=== PATIENT | male | born 1955 | race Hispanic/Latino ===

== ENCOUNTER 2016-11-04 19:39 | Observation (INO) | payer MEDICARE, MEDICAID ==
[2016-11-04 19:40] VITALS: BMI 34.8
[2016-11-04 20:23] LABS: BASO # 0.1 K/uL (0.0-0.2); BASO % 0.9 % (0.0-2.0); EOS # 0.3 K/uL (0.0-0.7); EOS % 4.3 % (0.0-4.0); HEMOGLOBIN 11.3 g/dL (12.0-18.0); LYMPH # 1.5 K/uL (1.0-4.3); LYMPH % 21.8 % (20.0-40.0); MEAN CORPUSCULAR HEMOGLOBIN 31.8 pg (27.0-31.0); MEAN CORPUSCULAR HGB CONC 32.8 g/dL (33.0-37.0); MEAN PLATELET VOLUME 8.1 fl (7.2-11.7); MONO # 0.8 K/uL (0.0-0.8); MONO % 11.3 % (0.0-10.0); NEUT # 4.3 K/uL (1.8-7.0); NEUT % 61.7 % (50.0-75.0); RBC 3.56 Mil/uL (4.40-5.90)
[2016-11-04 20:42] LABS: INR 1.2 (0.9-1.2); PARTIAL THROMBOPLASTIN TIME 33.6 Seconds (25.6-37.1); PROTHROMBIN TIME 12.1 Seconds (9.8-13.1)
[2016-11-04 20:45] LABS: ALB/GLOB RATIO 1.2 (1.0-2.1); ALBUMIN 3.9 g/dL (3.5-5.0); ALT/SGPT 38 U/L (21-72); AST/SGOT 24 U/L (17-59); BLOOD UREA NITROGEN 18 mg/dl (9-20); CALCIUM 9.3 mg/dL (8.4-10.2); GFR AFRICAN-AMERICAN > 60; GFR NON-AFRICAN AMERICAN > 60
--- NOTE | 2016-11-04 20:46 | ED PDOC ---
HPI: Chest Pain Time Seen by Provider: 11/04/16 19:57 Chief Complaint (Nursing): Chest Pain Chief Complaint (Provider): Chest pain History Per: Patient History/Exam Limitations: no limitations Onset/Duration Of Symptoms: Hrs ([id number].), Persistent (Mild but persistent.) Associated Symptoms: denies: Nausea, Diaphoresis, Other (No Vomiting,cough, or SOB) Additional Complaint(s): Shaun Lutz is a 61 year old male with a past medical history of HTN who presents to the ED for a chief complaint of chest pain onset [id number]. Patient reports he was cooking and developed acute left sided chest pain, with some associated jolt sensations to the left arm. States pain is mild but persistent and reports fatigue since onset. Denies any nausea, vomiting, diaphoresis, cough, or shortness of breath. Of note, patient denies any drug abuse, however the previous provider that saw the patient reports a history of cocaine abuse. PMD: None. Past Medical History Reviewed: Historical Data, Nursing Documentation, Vital Signs Vital Signs: Last Vital Signs Temp 98.2 F 11/05/16 00:00 Pulse 75 11/05/16 00:00 Resp 24 11/05/16 00:00 BP 136/68 11/05/16 00:00 Pulse Ox 100 11/05/16 00:00 - Medical History PMH: Anxiety, Bipolar Disorder, HTN, Chronic Pain - Surgical History Other surgeries: B/L Knee replacement. Multiple left foot surgeries. - Family History Family History: States: Unknown Family Hx - Social History Current smoker - smoking cessation education provided: No Ex-Smoker (has not smoked in the last 12 months): No Alcohol: Occasional Drugs: Denies (Patient denies drug abuse, but the previous provider that saw patient reports cocaine abuse.) - Immunization History Hx Tetanus Toxoid Vaccination: No Hx Influenza Vaccination: No Hx Pneumococcal Vaccination: No - Home Medications Home Medications: Ambulatory Orders Medication Instructions Recorded Pramipexole Di-HCl [Mirapex] 2 tab PO BID 10/05/16 Aspirin [Ecotrin] 81 mg PO DAILY 11/04/16 oxyCODONE [oxyCODONE Immediate 30 mg PO PRN PRN 11/04/16 Release Tab] - Allergies Allergies/Adverse Reactions: Allergies Allergy/AdvReac Type Severity Reaction Status Date / Time No Known Allergies Allergy Verified 11/04/16 21:00 Review of Systems ROS Statement: Except As Marked, All Systems Reviewed And Found Negative Constitutional: Negative for: Other (No Diaphoresis.) Cardiovascular: Positive for: Chest Pain (onset [id number].) Respiratory: Negative for: Cough, Shortness of Breath Gastrointestinal: Negative for: Nausea, Vomiting Physical Exam - Reviewed Nursing Documentation Reviewed: Yes Vital Signs Reviewed: Yes - Physical Exam Appears: Positive for: Well, Non-toxic, No Acute Distress Head Exam: Positive for: ATRAUMATIC, NORMAL INSPECTION, NORMOCEPHALIC Skin: Positive for: Normal Color, Warm, Dry Eye Exam: Positive for: Normal appearance, EOMI, PERRL ENT: Positive for: Normal ENT Inspection Neck: Positive for: Normal, Painless ROM Cardiovascular/Chest: Positive for: Regular Rate, Rhythm. Negative for: Murmur , Tachycardia Respiratory: Positive for: Normal Breath Sounds. Negative for: Wheezing, Respiratory Distress Gastrointestinal/Abdominal: Positive for: Normal Exam Back: Positive for: Normal Inspection Rectal: Positive for: Deferred Extremity: Positive for: Normal ROM Lymphatic: Positive for: Deferred Neurologic/Psych: Positive for: Alert, Oriented - Laboratory Results Result Diagrams: 11/04/16 20:18 11/04/16 20:18 - ECG O2 Sat by Pulse Oximetry: 97 (RA) Pulse Ox Interpretation: Normal Medical Decision Making Medical Decision Making: Time:1956: Initial Impression: 61 Year old male with chest pain. Initial Plan: * Labs * EKG * Chest X-Ray * Aspirin * Re-Evaluation 2042: Chest X-ray showed no acute diseases. Labs showed no clinically significant abnormalities. Patient will be admitted for chest pain observation. Case discussed with Dr. Chavira- medicine education liaison. Scribe Attestation: Documented by Karen Graf acting as a scribe for Tip Garvin MD. Provider Scribe Attestation: All medical record entries made by the Scribe were at my direction and personally dictated by me. I have reviewed the chart and agree that the record accurately reflects my personal performance of the history, physical exam, medical decision making, and the department course for this patient. I have also personally directed, reviewed, and agree with the discharge instructions and disposition. Disposition - Clinical Impression Clinical Impression: Chest pain - Patient ED Disposition Is Patient to be Admitted: Yes Discussed With : Renny Chavira Doctor Will See Patient In The: Hospital - Disposition Disposition Time: 20:43 Condition: FAIR - Pt Status Changed To: Hospital Disposition Of: Observation - POA Present On Arrival: None
--- NOTE | 2016-11-05 07:32 | RAD ---
HISTORY: chest pain COMPARISON: No prior. FINDINGS: LUNGS: No active pulmonary disease. PLEURA: No significant pleural effusion identified, no pneumothorax apparent. CARDIOVASCULAR: Normal. OSSEOUS STRUCTURES: No significant abnormalities. VISUALIZED UPPER ABDOMEN: Normal. OTHER FINDINGS: None. IMPRESSION: No active disease.
[2016-11-05] MEDS ORDERED: Enoxaparin 40 mg Syringe SC SCH (09:00)
--- NOTE | 2016-11-05 10:00 | CARD ---
APPROVED REPORT EKG Measurement Heart [id number] <Conclusion> Normal sinus rhythm Right bundle branch block Left anterior fascicular block Bifascicular block Abnormal ECG
--- NOTE | 2016-11-05 10:19 | CP.PCM.CON ---
History of Present Illness - History of Present Illness History of Present Illness: 61 year old male with a past medical history of HTN who presents to the ED for a chief complaint of arm to upper chest pain Patient reports he was cooking in a [employer] ([employer]) and developed a jolt that went from his hand to his left upper arm lasted seconds has not had it since no relation to movement or exertion Denies any nausea, vomiting, diaphoresis, cough, or shortness of breath. Of note, patient denies any drug abuse, however the previous provider that saw the patient reports a history of cocaine abuse. EKG: CRBBB Troponin: neg PMH: HTN bilateral knee surgeries Past Patient History - Past Medical History & Family History Past Medical History?: Yes - Past Social History Alcohol: Occasional Drugs: Denies (Patient denies drug abuse, but the previous provider that saw patient reports cocaine abuse.) - CARDIAC Hx Hypertension: Yes - NEUROLOGICAL Other/Comment: RLS - MUSCULOSKELETAL/RHEUMATOLOGICAL Hx Musculoskeletal Disorders: Yes Hx Falls: Yes (fell down steps and fractured foot in past) - PSYCHIATRIC Hx Anxiety: Yes Hx Bipolar Disorder: Yes - SURGICAL HISTORY Hx Surgeries: Yes Hx Joint Replacement: Yes (b/l knee; left knee x2) Hx Open Reduction Internal Fixation: Yes (l foot) Other/Comment: TKR x 3 - ANESTHESIA Hx Anesthesia: No Hx Anesthesia Reactions: No Hx Malignant Hyperthermia: No Meds Allergies/Adverse Reactions: Allergies Allergy/AdvReac Type Severity Reaction Status Date / Time No Known Allergies Allergy Verified 11/04/16 21:00 - Medications Medications: Current Medications Enoxaparin Sodium (Lovenox) 40 mg SC DAILY JUDIE PRN Reason: Protocol Last Admin: 11/05/16 08:40 Dose: 40 mg Physical Exam - Head Exam Head Exam: NORMAL INSPECTION - Eye Exam Eye Exam: Normal appearance - ENT Exam ENT Exam: Normal Exam - Neck Exam Neck exam: Positive for: Normal Inspection - Respiratory Exam Respiratory Exam: NORMAL BREATHING PATTERN - Cardiovascular Exam Cardiovascular Exam: REGULAR RHYTHM Results - Vital Signs Recent Vital Signs: Last Vital Signs Temp 98.7 F 11/05/16 08:19 Pulse 61 11/05/16 08:19 Resp 16 11/05/16 08:19 BP 147/76 11/05/16 08:19 Pulse Ox 94 L 11/05/16 08:19 - Labs Result Diagrams: 11/04/16 20:18 11/04/16 20:18 Labs: Laboratory Results - last 24 hr 11/04/16 11/05/16 11/05/16 20:52 04:16 08:50 Troponin I 0.0150 TSH 3rd Generation 0.15 L Alcohol, Quantitative 28 H Assessment & Plan (1) Chest pain Assessment and Plan: This appears to be a non cardiac type of pain pt may be discharged Status: Acute
[2016-11-05 11:41] LABS: BARBITURATES, UR NEGATIVE (NEGATIVE); BENZODIAZEPINES, UR NEGATIVE (NEGATIVE); OPIATES, UR NEGATIVE (NEGATIVE); PHENCYCLIDINE, UR NEGATIVE (NEGATIVE)
[2016-11-05 12:35] VITALS: BP 140/73; PULSE 60; RESP 22; TEMP 98.8; O2SAT 98
--- NOTE | 2016-11-05 18:32 | HP ---
CHIEF COMPLIANT: Chest pain. HISTORY OF PRESENT ILLNESS: This is a 61-year-old male who is a [facility] resident, also known history of hypertension, who was having chest pain for 2 hours before admission, so the patient was brought to the emergency room and was admitted for further management. The patient was not doing any strenuous activity other than cooking at that time she started having pain. REVIEW OF SYSTEMS: Positive for chest pain. Review of systems also is positive for jolting sensation to left arm and other joint pains. Review of systems otherwise is negative for headache, dizziness, syncope, loss of consciousness, shortness of breath, nausea, vomiting, diarrhea, constipation. Review of systems of all other organ system is unremarkable. PAST MEDICAL HISTORY: Significant for hypertension, overweight, anxiety, bipolar disorder, chronic pain syndrome. PAST SURGICAL HISTORY: Remarkable for knee replacement and foot surgery. PERSONAL HISTORY: The patient is currently nonsmoker and nondrinker. No substance abuse and lives in [facility], although the patient has previous history of cocaine abuse in the past. Denies any recent use. FAMILY HISTORY: Noncontributory. MEDICATIONS: The patient is on Mirapex, Ecotrin and oxycodone. ALLERGIES: THE PATIENT IS NOT ALLERGIC TO ANY MEDICATIONS. PHYSICAL EXAMINATION: GENERAL: A well-developed, well-nourished, overweight 61-year-old male in intensive care unit, in no acute distress. VITAL SIGNS: Temperature 98.9, pulse 62, respirations 21, blood pressure 131/62, saturation is 97%. NECK: Pupils are reactive to light. No JVD. No thyromegaly. No lymphadenopathy. No nystagmus. Normocephalic and atraumatic skull. HEART: S1 and S2 normal and regular. No significant murmur, gallop, or rub is heard. LUNGS: Exam shows good bilateral air exchange. No rales or rhonchi. ABDOMEN: Soft and nontender. No organomegaly and no fluid. Bowel sounds are plus. EXTERNAL GENITALIA: Appropriate for patient's age. RECTAL: Stool for occult blood is negative. EXTREMITIES: No edema. No calf swelling. No tenderness. No acute ischemia. CHILD LIFE SPECIALIST: Essentially unchanged. There is no sign of any acute gross focal, motor or sensory neurological deficits. DIAGNOSTIC DATA: Available diagnostic data reviewed. EKG shows right bundle branch block, normal sinus rhythm. Left axis deviation consistent with bifascicular block. No acute ST-T changes are appreciated. WBC 7.3, hemoglobin 11.3, hematocrit 34.5, and platelets 240. PT and PTT is unremarkable. Sodium 141, potassium 4.2, chloride 104, bicarb of 26, BUN of 18, and creatinine 0.7. SMA-12 is unremarkable. Alcohol level was 28. Chest x-ray is clear. ADMITTING IMPRESSION: Chest pain, rule out acute coronary syndrome. Troponin two sets are negative. Cardiology consult is pending. History of hypertension, anxiety, bipolar disorder and arthritis. PLAN: As ordered. Case and plan discussed with patient. Renny Chavira MD
== END 2016-11-05 13:22 | disposition home or self-care (01) ==
LOC: H.ER 19:39 → H.ERHOLD 20:43 → H.ICU/CCU 22:49
PROVIDERS: ADMIT Internal Medicine; ATTEND Internal Medicine
DX: R07.89 Other chest pain (principal); I10 Essential (primary) hypertension; G89.4 Chronic pain syndrome; F14.10 Cocaine abuse, uncomplicated; F41.9 Anxiety disorder, unspecified; F31.9 Bipolar disorder, unspecified; E66.3 Overweight; Z68.32 Body mass index [BMI] 32.0-32.9, adult; Z96.653 Presence of artificial knee joint, bilateral; Z79.82 Long term (current) use of aspirin
CPT/HCPCS: 71010; 80053; 82607; 84443; 84484; 85025; 85610; 85730; 87081; 93005; 99285; G0378; G0480; J1650

== ENCOUNTER 2017-01-01 19:51 | Emergency (ER) | payer MEDICARE, MEDICAID ==
[2017-01-01 19:51] VITALS: BMI 34.8
[2017-01-01 20:01] VITALS: RESP 18; TEMP 99; O2SAT 99
--- NOTE | 2017-01-01 21:04 | ED PDOC ---
Lower Extremity Pain/Injury Time Seen by Provider: 01/01/17 20:00 Chief Complaint (Nursing): Lower Extremity Problem/Injury Chief Complaint (Provider): Left foot wound History Per: Patient History/Exam Limitations: no limitations Onset/Duration Of Symptoms: Mins (prior to arrival) Current Symptoms Are (Timing): Still Present Additional Complaint(s): Shaun is a 61 y/o male with a past medical history of drug abuse, chronic leg pain, and restless leg syndrome, presenting for evaluation of left foot wound. He had a recent left foot debridement on 12/30/16, has had a total of 7 surgeries on left foot in the past. Tonight patient fell after losing his balance and slipped, with left foot wound opening on the lateral aspect. Patient also states he bumped both knees during the fall, and has had prior knee replacement surgery on both. PMD: Provider YANICK Past Medical History Reviewed: Historical Data, Nursing Documentation, Vital Signs Vital Signs: Last Vital Signs Temp 99 F 01/01/17 19:55 Pulse 66 01/01/17 19:55 Resp 18 01/01/17 19:55 BP 169/62 H 01/01/17 19:55 Pulse Ox 99 01/01/17 19:55 - Medical History PMH: Anxiety, Bipolar Disorder, HTN, Chronic Pain Other PMH: Substance abuse, restless leg syndrome - Surgical History Other surgeries: 7 surgeries on left foot, bilateral knee surgery - Family History Family History: States: Unknown Family Hx - Immunization History Hx Tetanus Toxoid Vaccination: No Hx Influenza Vaccination: No Hx Pneumococcal Vaccination: No - Home Medications Home Medications: Ambulatory Orders Medication Instructions Recorded Pramipexole Di-HCl [Mirapex] 2 tab PO BID 10/05/16 Aspirin [Ecotrin] 81 mg PO DAILY 11/04/16 oxyCODONE [oxyCODONE Immediate 30 mg PO PRN PRN 11/04/16 Release Tab] Cephalexin [Keflex] 500 mg PO BID #14 capsule 01/01/17 - Allergies Allergies/Adverse Reactions: Allergies Allergy/AdvReac Type Severity Reaction Status Date / Time No Known Allergies Allergy Verified 11/04/16 21:00 Review of Systems ROS Statement: Except As Marked, All Systems Reviewed And Found Negative Musculoskeletal: Positive for: Foot Pain (Left foot, w/ redness and swelling) Physical Exam - Reviewed Nursing Documentation Reviewed: Yes Vital Signs Reviewed: Yes - Physical Exam Appears: Positive for: Non-toxic, No Acute Distress Head Exam: Positive for: ATRAUMATIC, NORMOCEPHALIC Skin: Positive for: Normal Color, Warm, Dry Eye Exam: Positive for: EOMI, Normal appearance, PERRL Neck: Positive for: Normal, Supple Cardiovascular/Chest: Positive for: Regular Rate, Rhythm. Negative for: Murmur Respiratory: Positive for: Normal Breath Sounds. Negative for: Accessory Muscle Use, Respiratory Distress Gastrointestinal/Abdominal: Positive for: Normal Exam, Soft. Negative for: Tenderness Extremity: Positive for: Normal ROM, Capillary Refill (less than 2 s), Swelling (to bilateral knees), Other (Left foot with erythema, swelling, and skin has opened. neurovascular intact.). Negative for: Tenderness, Pedal Edema, Calf Tenderness, Deformity Neurologic/Psych: Positive for: Alert, Oriented. Negative for: Motor/Sensory Deficits - Laboratory Results Result Diagrams: 01/01/17 21:00 01/01/17 21:00 - ECG O2 Sat by Pulse Oximetry: 99 (RA) Pulse Ox Interpretation: Normal Medical Decision Making Medical Decision Making: Time: 20:35 Initial Plan: --X-Ray Bilateral Knees --X-Ray Left Foot --CBC --CMP --Paged Podiatry for consult Time: 21:09 --Patient given 1 tab Percocet Time: 22:12 --Podiatry at bedside --Ordered X-Ray Left Ankle Time: 23:15 -Patient seen by podiatry, believe it is a charcot joint. 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 They refute X-Rays, Left Ankle and Knee X-Ray show no acute fractures -Plan: Patient to be treated with IV antibiotics here and then discharged home with po antibiotics Scribe Attestation: Documented by Marcella Sumner, acting as a scribe for Nicki Holland MD Provider Scribe Attestation: All medical record entries made by the Scribe were at my direction and personally dictated by me. I have reviewed the chart and agree that the record accurately reflects my personal performance of the history, physical exam, medical decision making, and the department course for this patient. I have also personally directed, reviewed, and agree with the discharge instructions and disposition. Scribe Attestation: Documented by Mason Patel, acting as a scribe for Nicki Holland MD Provider Scribe Attestation: All medical record entries made by the Scribe were at my direction and personally dictated by me. I have reviewed the chart and agree that the record accurately reflects my personal performance of the history, physical exam, medical decision making, and the department course for this patient. I have also personally directed, reviewed, and agree with the discharge instructions and disposition. Disposition - Clinical Impression Clinical Impression: Charcot ankle - Patient ED Disposition Is Patient to be Admitted: No Counseled Patient/Family Regarding: Studies Performed, Diagnosis, Need For Followup - Disposition Disposition: Routine/Home Disposition Time: 22:50 Condition: IMPROVED Additional Instructions: follow up with your construction area manager in 1-2 days return to the ED with any worsening or concerning symptoms Prescriptions: Cephalexin [Keflex] 500 mg PO BID #14 capsule Instructions: Swollen Joint (ED) Forms: [employer] (Filipino)
[2017-01-01 21:09] LABS: BASO # 0.1 K/uL (0.0-0.2); EOS # 0.3 K/uL (0.0-0.7); EOS % 4.5 % (0.0-4.0); LYMPH # 1.6 K/uL (1.0-4.3); LYMPH % 23.3 % (20.0-40.0); MEAN CELL VOLUME 96.2 fl (80.0-94.0); MEAN CORPUSCULAR HEMOGLOBIN 31.8 pg (27.0-31.0); MEAN CORPUSCULAR HGB CONC 33.1 g/dL (33.0-37.0); MEAN PLATELET VOLUME 7.9 fl (7.2-11.7); MONO # 0.6 K/uL (0.0-0.8); NEUT # 4.1 K/uL (1.8-7.0); NEUT % 61.2 % (50.0-75.0); RED CELL DISTRIBUTION WIDTH 14.2 % (11.5-14.5); WHITE BLOOD COUNT 6.7 K/uL (4.8-10.8)
[2017-01-01] MEDS ORDERED: Oxycodone/Acetaminophen 5/325 mg Tab PO ONE (21:09)
[2017-01-01 21:18] LABS: ALB/GLOB RATIO 1.2 (1.0-2.1); ALKALINE PHOSPHATASE 91 U/L (38-126); ALT/SGPT 30 U/L (21-72); AST/SGOT 36 U/L (17-59); BLOOD UREA NITROGEN 22 mg/dl (9-20); CALCIUM 9.3 mg/dL (8.4-10.2); CARBON DIOXIDE 30 mmol/L (22-30); CHLORIDE 107 mmol/L (98-107); GFR AFRICAN-AMERICAN > 60; GLUCOSE,RANDOM 104 mg/dL (75-110); POTASSIUM 4.7 MMOL/L (3.6-5.0); SODIUM 147 mmol/l (132-148); TOTAL PROTEIN 7.3 G/DL (6.3-8.2)
--- NOTE | 2017-01-01 22:23 | CP.PCM.CON ---
History of Present Illness - History of Present Illness History of Present Illness: 61 y/o male with no PMHx seen at bedside in ED complaining of pain on his left foot. Patient states that he has had a wound on the outside of his foot for a very long time. Patient states that he injured him self about 10 years ago when he sustained an injury initially. Patient states that he had a fracture to the 5th toe and then it turned into a joint afterwards. Patient states that he has had about 7 surgeries to the left foot in order to correct the injury. Patient states that he recently saw a specialist for this deformity and wants to continue following up with the same doctor. Patient states that he was given antibiotics and was advised to change dressing daily. Patient admits to falling little prior to arriving at the hospital today and hurting the wounded area. Patient describes his pain as throbbing type and rates it as 10/10 on a VAS. Patient states that he has been taking the antibiotics as advised. Patient denies of any V/N/C/SOB/CP today. Patient states that he did have a little fever today. Patient denies of any other pedal complains today. PMHx: denies PSHx: b/l knee surgery, multiple left foot surgeries Allergies: Denies SHx: denies smoking, EtOH and illicit drug usage Review of Systems - Constitutional Constitutional: As Per HPI Past Patient History - Past Medical History & Family History Past Medical History?: Yes - Past Social History Smoking Status: Former Smoker - CARDIAC Hx Hypertension: Yes - NEUROLOGICAL Other/Comment: RLS - MUSCULOSKELETAL/RHEUMATOLOGICAL Hx Musculoskeletal Disorders: Yes Hx Falls: Yes (fell down steps and fractured foot in past) - PSYCHIATRIC Hx Anxiety: Yes Hx Bipolar Disorder: Yes - SURGICAL HISTORY Hx Surgeries: Yes Hx Joint Replacement: Yes (b/l knee; left knee x2) Hx Open Reduction Internal Fixation: Yes (l foot) Other/Comment: TKR x 3 - ANESTHESIA Hx Anesthesia: No Hx Anesthesia Reactions: No Hx Malignant Hyperthermia: No Meds Allergies/Adverse Reactions: Allergies Allergy/AdvReac Type Severity Reaction Status Date / Time No Known Allergies Allergy Verified 11/04/16 21:00 Physical Exam - Constitutional Appears: Well, Non-toxic, No Acute Distress - Extremities Exam Additional comments: Bilateral lower extremity examination: VASC: DP/PT pulses are palpable 2/4 b/l, Cap refill time: < 3 sec to all digits , temp gradient is warm to warm from proximal to distal, mild non-pitting edema noted on the lateral aspect of the left foot at the level of tarso-metatarsal joint DERM: Left foot: Fissure like wound measuring approximately 6.0 cm x 1.7 cm x 0.5 cm with fibro-granular base, wound base is 60% granular and 40% fibrotic, active serous drainage noted from the wound, undermining present distal aspect of the wound, wound edges are macerated with lara-wound erythema which is very minimal and localized, no probe to bone, malodor present, no tunneling Right foot: no open lesions, no clinical suspicion of active infection NEURO: Protective sensation grossly diminished ORTHO: Tenderness on palpation of the ulcerated site, tenderness on palpation of the lateral malleolus as well as the ATFL ligament on the left foot, no pain on active and passive ROM of the left foot during dorsiflexion, plantarflexion, inversion and eversion - Neurological Exam Neurological exam: Alert, Oriented x3 - Psychiatric Exam Psychiatric exam: Normal Affect, Normal Mood Results - Vital Signs Recent Vital Signs: Last Vital Signs Temp 99 F 01/01/17 19:55 Pulse 66 01/01/17 19:55 Resp 18 01/01/17 19:55 BP 169/62 H 01/01/17 19:55 Pulse Ox 99 01/01/17 21:55 - Labs Result Diagrams: 01/01/17 21:00 01/01/17 21:00 Labs: Laboratory Results - last 24 hr 01/01/17 01/01/17 21:00 21:00 WBC 6.7 RBC 3.64 L Hgb 11.6 L Hct 35.0 MCV 96.2 H MCH 31.8 H MCHC 33.1 RDW 14.2 Plt Count 290 MPV 7.9 Neut % (Auto) 61.2 Lymph % (Auto) 23.3 [place] % (Auto) 9.0 Eos % (Auto) 4.5 H Baso % (Auto) 2.0 Neut # 4.1 Lymph # 1.6 [place] # 0.6 Eos # 0.3 Baso # 0.1 Sodium 147 Potassium 4.7 Chloride 107 Carbon Dioxide 30 Anion Gap 14 BUN 22 H Creatinine 0.7 L Est GFR ( Amer) > 60 Est GFR (Non-Af Amer) > 60 Random Glucose 104 Calcium 9.3 Total Bilirubin 1.0 AST 36 ALT 30 Alkaline Phosphatase 91 Total Protein 7.3 Albumin 3.9 Globulin 3.4 Albumin/Globulin Ratio 1.2 Assessment & Plan - Assessment and Plan (Free Text) Assessment: 61 y/o male seen at bedside in ED with a 1). chronic wound (brito grade 2) 2). chronic multiple non-healed fractures of the lateral left foot 3). injury to the left foot s/p fall Plan: Patient seen and evaluated at bedside Patient discussed in details with attending Dr. Perea Labs and vitals reviewed: afebrile and WBC @ 6.7 X-rays of the left foot and ankle ordered/reviewed -multiple radiolucency noted at the base of the 5th metatarsal-cuboid joint of the left foot possible suspicion of charcot deformity. no soft tissue emphysema noted. Increase in radiodensity at the lateral left foot indicating soft tissue swelling. Ankle joint appears within normal limit with no acute fracture or dislocation. Wound cleaned using saline and silvadine, DSD applied to the wounded site Modified garcia dressing applied to the left foot Surgical shoe and crutches given - patient educated to remain NWB to the left foot Patient educated the importance of finishing the abx that was given to him by the outside doctor and to follow up with him soon Patient educated to return to ED if the symptoms become worse Patient educated to keep the dressing clean and dry Patient demonstrated verbal understanding Thank you for the podiarty consult and allowing to take part in patient care - Date & Time Date: 01/01/17 Time: 22:33
[2017-01-01] MEDS ORDERED: Silver Sulfadiazine 1% CREAM (50 gm) ONE (22:52)
[2017-01-01] MEDS ORDERED: Piperacillin/Tazobact 4.5 GM in Sodium Chloride 0.9% 100 ML IVPB STA (23:04)
[2017-01-01] MEDS ORDERED: Vancomycin 1 g Inj ONE (23:05)
[2017-01-01 23:29] VITALS: BP 141/74; PULSE 86
--- NOTE | 2017-01-02 08:50 | RAD ---
PROCEDURE: Bilateral Knee Radiographs. HISTORY: knee pain status post fall COMPARISON: None. FINDINGS: BONES: The patient is noted to be status post bilateral knee replacements with no acute fracture or dislocation appreciated bilaterally. Trace lucency seen surrounding the orthopedic blue related to the stem of the left tibial prosthesis as well as deep to the horizontal plate of the left tibial prosthesis as well. Limited loosening is not completely excluded. Loosening is not favored given the lack of hyper cortication of the endosteal surface of the local endosteum at the tip of the left tibial prosthesis stem. Clinically correlate further. JOINTS: Questionable lateral subluxation of the patella with no definite right patellar subluxation. SOFT TISSUES: Right Knee: Normal. Left Knee: Normal. JOINT EFFUSION: Small bilateral knee joint effusions are identified. OTHER FINDINGS: None. IMPRESSION: Status post bilateral total knee replacement with questionable loosening at the stem of the left tibial prosthesis. Please see discussion above. There is also mild subluxation of the left patella laterally.
--- NOTE | 2017-01-02 08:54 | RAD ---
PROCEDURE: Left Foot Radiographs. HISTORY: foot pain COMPARISON: None. FINDINGS: BONES: Prior compression plate and 4 transfixing screws have been removed from the proximal 5th metatarsal bone. Erosive changes are suggested at a fragment of the proximal left 5th metatarsal bone which is distracted approximately and appears lateral to the left cuboid bone. Trace periosteal reaction is again questioned. 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 SOFT TISSUES: Gross increase in soft tissue edema is appreciated lateral to the operative site with emphysematous soft tissue change suspicious for advanced cellulitis. OTHER FINDINGS: None. IMPRESSION: Consider advanced lateral left midfoot cellulitis and probable osteomyelitis of the 5th metatarsal bone at least. Prior fixation hardware is removed here. Consider MRI follow up for additional characterization although this may be limited due to prior operative history.
--- NOTE | 2017-01-02 08:56 | RAD ---
PROCEDURE: Left Ankle Radiographs. HISTORY: pain COMPARISON: None FINDINGS: BONES: Normal. No fracture. JOINTS: Moderate cortical sclerosis throughout the ankle mortise indicates tibiotalar and fibulotalar osteoarthritis. Ankle mortise maintained. Talar dome intact. SOFT TISSUES: Normal. OTHER FINDINGS: None. IMPRESSION: No acute fracture dislocation left ankle. Degenerative changes are seen at the tibiotalar and fibulotalar joints.
== END 2017-01-02 03:28 | disposition home or self-care (01) ==
LOC: H.ER 19:51
DX: M14.672 Charcot's joint, left ankle and foot (principal); M25.569 Pain in unspecified knee; W19.XXXA Unspecified fall, initial encounter; Y92.89 Other specified places as the place of occurrence of the external cause; Z96.651 Presence of right artificial knee joint
CPT/HCPCS: 73562; 73600; 73620; 80053; 85025; 96365; 96366; 99284; J2543